=== PATIENT | female | born 1945 | race Caucasian/White ===

== ENCOUNTER → 2016-12-20 | Day surgery (SDC) | payer MEDICARE ==
[~2016-12-20] MED LIST: ASPI81TA82 PO; CEFU1TAB43 PO; GLUC10TA3 PO; HYDR12.56 PO; LACTATED RINGER'S 1000 ML INJ 1,000 ML ONE; LISI-366 PO; MIDAZOLAM HCL 2 MG/2 ML VIAL ONE; ONDANSETRON HCL 4 MG/2 ML VIAL IV PUSH ONE; POTA75TA PO; PROP60CA PO; PROPOFOL 200 MG/20 ML AMP IV ONE; TAB-TAB PO; ceFAZolin INJ 1,000 MG VIAL ONE
--- NOTE | 2016-12-21 20:04 | MP ---
cc: OMAR VARGAS M.D. DATE OF SURGERY: 12/20/2016 PREOPERATIVE DIAGNOSIS: Postmenopausal bleeding, endometrial thickening. POSTOPERATIVE DIAGNOSIS: Postmenopausal bleeding, endometrial thickening. Endometrial polyps OPERATION: Hysteroscopy, MyoSure resection of polyps, endometrial lining. SURGEON Arina Vargas MD. ANESTHESIA: General. ESTIMATED BLOOD LOSS: 30 cc COMPLICATIONS None. FINDINGS The patient had a uterus that was prolapsed with the cervix at the introitus. The cervix was quite elongated and the endometrium sounded to 9 cm. The endometrial lining revealed three or four benign-appearing polyps. In addition the endometrial lining was somewhat granular in appearance. DESCRIPTION OF PROCEDURE The patient was brought to the operating room. Following general anesthesia, was placed in dorsolithotomy position. Her vagina, abdomen and perineum were prepped and draped. The cervix was grasped with single-tooth tenaculum and dilated to allow passage of the MyoSure scope. Hysteroscopy was performed with findings as noted above. The MyoSure device was then inserted and the polyps were easily resected as was the granular appearing endometrial lining. Bleeding was scant so all instruments were removed and the patient was taken to the Recovery Room in good condition with all counts correct. She will be discharged home when stable and alert, and will be followed up in one week in our office. DISCHARGE MEDICATIONS: Percocet. DISCHARGE INSTRUCTIONS: She was given instructions on physical activity, instructed to resume regular diet as tolerated. Omar Vargas MD [facility] /9:53 AM /7:58 PM
== END | disposition home or self-care (01) ==
LOC: ESDC 08:16
PROVIDERS: ATTEND Obstetrics & Gynecology
DX: N95.0 Postmenopausal bleeding (principal); N84.0 Polyp of corpus uteri; R93.8 Abnormal findings on diagnostic imaging of other specified body structures
CPT/HCPCS: 00952; 58558; 88305; J0690; J2250; J2405; J3010; J7120